=== PATIENT | female | born 1950 | race Caucasian/White ===

== ENCOUNTER 2017-06-14 13:03 | Emergency (ER) | payer OTHER, MEDICARE ==
[~2017-06-14] VITALS: Ht 160 cm; Wt 54.4 kg
[2017-06-14 13:48] LABS: HEMATOCRIT 40.3 % (36.0-46.0); HEMOGLOBIN 13.7 G/DL (11.9-15.5); MCV 94.2 FL (83-99); PLATELET COUNT 230 K/uL (156-360); RBC DIS.WIDTH-CV 12.8 % (11.8-14.6); RED BLOOD COUNT 4.28 M/uL (3.80-5.20); WHITE BLOOD COUNT 5.8 K/uL (4.1-10.2)
[2017-06-14 13:59] LABS: CHLORIDE 106 mEq/L (99-109); POTASSIUM 3.5 mEq/L (3.7-5.4); SODIUM 139 mEq/L (136-147)
[2017-06-14 14:01] LABS: GLUCOSE 91 mg/dL (70-99)
[2017-06-14 14:02] LABS: TOTAL PROTEIN 6.5 g/dL (6.4-8.3)
[2017-06-14 14:03] LABS: TOTAL BILIRUBIN 0.6 mg/dL (0.0-1.0)
[2017-06-14 14:05] LABS: ALKALINE PHOSPHATASE 80 IU/L (3-129); CREATININE 0.8 mg/dL (0.6-1.3)
[2017-06-14 14:06] LABS: UREA NITROGEN (BUN) 15 mg/dL (9-23)
[2017-06-14 14:07] LABS: AST (GOT) 23 IU/L (2-34)
[2017-06-14 14:08] LABS: ALT (GPT) 16 IU/L (3-49)
[2017-06-14 14:09] LABS: GFR ESTIMATE (CALCULATED) > 59 mL/min/; LIPASE 11 U/L (1.0-51.0)
[2017-06-14 14:50] LABS: APPEARANCE CLEAR ((CLEAR)); BILIRUBIN NEGATIVE; BLOOD NEGATIVE; COLOR STRAW ((YELLOW)); GLUCOSE (STRIP) NEGATIVE; KETONES NEGATIVE; LEUKOCYTES NEGATIVE; NITRITE NEGATIVE; PROTEIN (STRIP) NEGATIVE; SPECIFIC GRAVITY 1.011 (1.000-1.030); UCUL ADDED? NO; UROBILINOGEN 0.2 MG/DL (0.2-1.0)
[2017-06-14] MEDS ORDERED: ZOFRAN ODT8 MG PO (15:27)
[2017-06-14] MEDS ORDERED: BENTYL20 MG PO (15:27)
[2017-06-14 15:41] VITALS: BP 137/93
== END 2017-06-14 15:42 | disposition home or self-care (01) ==
LOC: RME 13:03 → EME 13:03 → RME 15:42
DX: R10.12 Left upper quadrant pain (principal); R03.0 Elevated blood-pressure reading, without diagnosis of hypertension
CPT/HCPCS: 74022; 80053; 81003; 83605; 83690; 85027; 93005; 99281; 99284